=== PATIENT | female | born 1990 | race Caucasian/White ===

== ENCOUNTER 2018-05-22 00:21 | Emergency (ER) | payer SELFPAY ==
--- NOTE | 2018-05-22 01:06 | ER Document Report ---
HPI - HPI Patient complains to provider of: Headache, nausea Time Seen by Provider: 05/22/18 00:42 Pain Level: 4 Context: Patient is a 27-year-old female presenting to the emergency department complaining of a headache and nausea. Patient states that the right side of her face on her car door she was opening it on accident. Patient denies loss of consciousness or vomiting at that time. Patient states she has had intermittent headaches for the last couple of months. States as a child she was told she had migraines but has never seen a neurologist. Patient states prior to arrival she was in tears because the pain on the right side of her face and into her right head was so excruciating. States she took Goody power prior to arrival. Patient now states the pain has somewhat resolved. Patient denies any change in vision, vomiting, numbness or tingling in any extremity. Past medical history: Depression, anxiety Medication: Fluoxetine, citalopram Allergies: None Surgical history: None Patient denies cigarette smoking, denies illicit drug use, admits to occasional EtOH use. Past Medical History - General Information source: Patient - Social History Smoking Status: Never Smoker Frequency of alcohol use: Occasional Lives with: Family Family History: Reviewed & Not Pertinent Neurological Medical History: Reports: Hx Migraine - Immunizations Immunizations up to date: Yes Vertical Provider Document - CONSTITUTIONAL Agree With Documented VS: Yes Notes: GENERAL: Alert, interacts well. No acute distress. HEAD: Normocephalic, atraumatic. No point tenderness upon palpation right face , right islam. When asked her pain is patient points to her entire right face and right side of her head. EYES: Pupils equal, round, and reactive to light. Extraocular movements intact. ENT: Oral mucosa moist, tongue midline. Nares patent, no nasal septal hematoma, TM's intact, no hemotympanum. NECK: Full range of motion. Supple. Trachea midline. LUNGS: Clear to auscultation bilaterally, no wheezes, rales, or rhonchi. No respiratory distress. HEART: Regular rate and rhythm. No murmur ABDOMEN: Obese soft, non-tender. Non-distended. Bowel sounds present in all 4 quadrants. EXTREMITIES: Moves all 4 extremities spontaneously. No edema, normal radial and dorsalis pedis pulses bilaterally. No cyanosis. 5 out of 5 strength all 4 extremities. BACK: no cervical, thoracic, lumbar midline tenderness. No saddle anesthesia, normal distal neurovascular exam. NEUROLOGICAL: Alert and oriented x3. Normal speech. cranial nerves II through XII grossly intact. PSYCH: Normal affect, normal mood. SKIN: Warm, dry, normal turgor. No rashes or lesions noted. - INFECTION CONTROL TRAVEL OUTSIDE OF THE [place] IN LAST 30 DAYS: No Course - Re-evaluation Re-evalutation: Patient does not meet criteria for CT at this time. Headache could be chronic from her migraines or new onset from the trauma she sustained to the right side of her head yesterday. Potentially postconcussive syndrome. 05/22/18 01:03 Discussed with patient at length treatment for her headache. She then starts to cry stating that she does not have insurance. States now upon arriving to the emergency room her headache is not as bad as it was at home. States she did take Goody powder prior to arrival. States she wishes for prescriptions for medications and not to be treated in the emergency room because she does not have insurance and she is worried about the expense of this visit. Discussed treatment with IV fluids, Benadryl, Toradol, antinausea medications. Patient states she has been drinking plenty of fluids, and can take Benadryl [id number]. She states she will take Tylenol or Motrin. Offered the patient multiple times headache/migraine treatment in the emergency room but she continues to wish to deny. Neuro exam is within normal limits, no deficits noted. Vital signs reviewed, nursing notes reviewed. Patient is nontoxic at this time. Drinking water although stating she is nauseous. Discussed with patient the good Rx application on her smart phone in order to get prescription medications at a discounted [facility]oad[facility]. Patient stops crying and is extremely appreciative of the time I have spent discussing headache treatments with her. Patient states she has an appointment at the [facility] on . Vitals reviewed: Nursing notes reviewed. Discharge - Discharge Clinical Impression: Nausea Headache Qualifiers: Headache type: unspecified Headache chronicity pattern: acute headache Intractability: not intractable Qualified Code(s): R51 - Headache Condition: Stable Disposition: HOME, SELF-CARE Instructions: Headache ([facility]), Nausea or Vomiting, Nonspecific ([facility]) Additional Instructions: As we discussed you have been seen and treated in the emergency department for headache and nausea. You should take medications as prescribed. Please follow- up with [facility] at your earliest convenience. Please return to the emergency room for any other concerning symptoms. Prescriptions: Ketorolac Tromethamine [Toradol 10 mg Tablet] 10 mg PO Q8HP PRN #24 tablet PRN Reason: Ondansetron [Zofran Odt 4 mg Tablet] 1 - 2 tab PO Q4H PRN #15 tab.rapdis PRN Reason: For Nausea/Vomiting Forms: Return to Work
[2018-05-22 01:23] VITALS: BP 132/87
== END 2018-05-22 01:22 | disposition home or self-care (01) ==
LOC: ER 00:21
DX: R51 Headache (principal); R11.0 Nausea; W22.8XXA Striking against or struck by other objects, initial encounter; Z79.899 Other long term (current) drug therapy
CPT/HCPCS: 99283